=== PATIENT | male | born 1945 | race Caucasian/White ===

== ENCOUNTER → 2016-11-04 | Outpatient (CLI) | payer MEDICARE, BC ==
[2016-11-04 13:14] LABS: Blood Urea Nitrogen 17 mg/dL (9-20); Non-African American GFR(MDRD) >60 (>60 ml/min/1.73 sqM)
--- NOTE | 2016-11-04 13:49 | CT ---
EXAMINATION TYPE: CT brain wo/w con DATE OF EXAM: 11/04/2016 COMPARISON: NONE HISTORY: Migraine CT DLP: 1974.4mGycm CONTRAST: CT scan of the head is performed without and with IV Contrast, patient injected with 100 mL of Omnipa que 300. Unenhanced followed by contrast enhanced CT of the brain is submitted for evaluation. The ventricles are midline. There is no evidence for intracranial hemorrhage or extra-axial collection. No mass e ffects are identified. Visualized bony calvarium is intact. Contrast is administered and no enhanci ng lesions are detected. No pathologic enhancement is identified. If symptoms persist consider MRI. IMPRESSION: Normal CT brain.
== END | disposition home or self-care (01) ==
LOC: RADCTMAIN 12:22
PROVIDERS: ATTEND Family Medicine
DX: G43.909 Migraine, unspecified, not intractable, without status migrainosus (principal)
CPT/HCPCS: 82565; 84520; 70470; 36415; Q9967

== ENCOUNTER → 2016-12-15 | Outpatient (CLI) | payer MEDICARE, BC ==
--- NOTE | 2016-12-15 16:07 | US ---
EXAMINATION TYPE: US carotid duplex BILAT DATE OF EXAM: 12/15/2016 COMPARISON: NONE CLINICAL HISTORY: 71-year-old male G43.909 MIGRAINE. TECHNIQUE: Carotid duplex ultrasound examination. In direct Doppler criteria was utilized. FINDINGS: EXAM MEASUREMENTS: RIGHT: Peak Systolic Velocity (PSV) cm/sec ----- Right CCA: 121 ----- Right ICA: 130 ----- Right ECA: 218 ICA/CCA ratio: 1.1 RIGHT: End Diastole cm/sec ----- Right CCA: 36 ----- Right ICA: 34 ----- Right ECA: 40.8 LEFT: Peak Systolic Velocity (PSV) cm/sec ----- Left CCA: 124 ----- Left ICA: 113 ----- Left ECA: 108 ICA/CCA ratio: 0.9 LEFT: End Diastole cm/sec ----- Left CCA: 37.9 ----- Left ICA: 37.7 ----- Left ECA: 23.2 VERTEBRALS (direction of flow): Right Vertebral: Antegrade Left Vertebral: Antegrade No significant stenosis seen. Elevated right ECA, mildly elevated right ICA. IMPRESSION: Mildly elevated proximal right ICA peak systolic velocity. However, there is no significant atheroscl erotic narrowing seen. Findings probably reflect turbulent flow. Criteria for Assigning % of Stenosis / Diameter reduction (Estimation based on the indirect measurements of the internal carotid artery velocities (ICA PSV). 1. Normal (no stenosis)=ICA PSV < 125 cm/s: ratio < 2.0: ICA EDV<40 cm/s. 2. Less than 50% stenosis=ICA PSV < 125 cm/s: ratio < 2.0: ICA EDV<40 cm/s. 3. 50 to 69% stenosis=ICA PSV of 125 to 230 cm/s: ration 2.0 ? 4.0: ICA EDV 40-100 cm/s. 4. Greater than 70% stenosis to near occlusion= ICA PSV > 230 cm/s: ratio > 4.0: ICA EDV > 100 cm/s. 5. Near occlusion= ICA PSV velocities may be low or undetectable: variable ratio and ICA EDV. 6. Total occlusion=unable to detect flow.
== END | disposition home or self-care (01) ==
LOC: RADUSWWP 15:24
PROVIDERS: ATTEND Family Medicine
DX: R93.8 Abnormal findings on diagnostic imaging of other specified body structures (principal); G43.909 Migraine, unspecified, not intractable, without status migrainosus
CPT/HCPCS: 93880

== ENCOUNTER → 2016-12-17 | Outpatient (CLI) | payer MEDICARE, BC ==
--- NOTE | 2016-12-17 18:12 | MR ---
EXAMINATION TYPE: MR brain wo con DATE OF EXAM: 12/17/2016 COMPARISON: CT 11/04/2016 HISTORY: Headaches T1-weighted sagittal, T2, FLAIR, and diffusion axial, and T2 coronal coronal views of the brain are s ubmitted. There is no evidence of acute ischemia. The ventricles, basal cisterns, and sulci overlying the conv exities are consistent with the patient's age. There is no mass effect. Craniocervical junction maintained. Sella turcica has a normal appearance. No cerebellopontine angle mass. Changes of mild chronic sinusitis and left mastoiditis. Mild generalized degenerative change. There are a couple scattered areas of abnormal signal within th e white matter bilaterally which is nonspecific. IMPRESSION: 1. No acute intracranial process. 2. Minimal nonspecific white matter change could be seen with hypertension or migraine headaches. Rem ote microvascular ischemia also a consideration. Demyelinating process not entirely excluded but felt less likely. 3. Mild chronic sinusitis and left mastoiditis
== END | disposition home or self-care (01) ==
LOC: RADMRIMAIN 16:32
PROVIDERS: ATTEND Family Medicine
DX: I67.82 Cerebral ischemia (principal); R90.82 White matter disease, unspecified
CPT/HCPCS: 70551

== ENCOUNTER 2017-04-12 10:40 | Inpatient (IN) | payer MEDICARE, BC ==
--- NOTE | 2017-04-11 09:00 | HP ---
HISTORY AND PHYSICAL CHIEF COMPLAINT: Left knee pain. HISTORY OF PRESENT ILLNESS: The patient is a 72-year-old retired gentleman who presents with progressive left knee pain secondary to osteoarthrosis for the past several years. It has worsened recently. He is having a difficult time bearing weight. He has been limping. He has had previous injections along with multiple medications with only partial temporary relief. He has been using a cane or a walker. PAST MEDICAL HISTORY: Significant for asthma. PAST SURGICAL HISTORY: Significant for hernia repair, left knee arthroscopy, right shoulder surgery, previous cervical and lumbar spine surgery and tonsillectomy. CURRENT MEDICATIONS: 1. Omeprazole. 2. Naprosyn. 3. Percocet. 4. Soma. He notes allergies to PENICILLIN. In addition, develops a rash with SURGICAL TAPE. FAMILY HISTORY: Significant for heart disease and cancer. SOCIAL HISTORY: Negative for current tobacco or alcohol use. 16 POINT REVIEW OF SYSTEMS: Otherwise reviewed and is noncontributory. On examination, the patient is approximately 6 foot tall, 240 pounds of endomorphic habitus. HEENT exam is nonfocal. Neck is supple. He has painless passive motion of his left hip. Straight leg raise is negative. Active motion left knee -14 to 110 degrees of flexion. He is tender about the medial joint line. He has moderate effusion. Collaterals stable, Ruchi is negative, Adrienne's is equivocal. He has genu varum alignment. His distal neurovascular exam appears intact in the left lower extremity. X-rays to include weightbearing, notch, lateral and Merchant views of the left knee obtained in the office show severe medial compartment narrowing. IMPRESSION: 1. Left knee severe medial compartment osteoarthrosis. 2. Increased body mass index. 3. History of asthma. RECOMMENDATIONS: I talked to the patient at length regarding his treatment options. At this point, he is quite symptomatic. He opts to proceed with surgery. We will plan to proceed with left total knee arthroplasty. Risks and benefits were discussed at length in layman's terms. We will institute DVT prophylaxis postoperatively. MMODL / IJN: [id number] /
[~2017-04-12 10:40] MED LIST: ACETAMINOPHEN TAB 500 MG TAB PO ONE; HYDROmorphone 0.5 MG/0.5 ML SYRINGE IVP PRN; LIDOCAINE 1% 20 ML VIAL (10MG/ML) FOR IV START INTRADERMA PRN; MELOXICAM 7.5 MG TAB PO ONE; ONDANSETRON 4 MG/2 ML VIAL IVP ONE; TRANEXAMIC ACID 1,000 MG in SODIUM CHLORIDE 0.9% 100 ML IVPB ONE; ceFAZolin IN SWFI 2 GM/20 ML SYRINGE IVP ONE
[2017-04-12] MEDS: LACTATED RINGERS 1,000 ML IV SCH ×2 (13:10→21:11)
[2017-04-12] MEDS ORDERED: MIDAZOLAM 2 MG/2 ML VIAL IV ONE (13:30)
[2017-04-12] MEDS ORDERED: ROPIVACAINE 1,100 MG, SODIUM CHLORIDE 0.9% 330 ML MISCELLANE PRN ×2 (13:55)
--- NOTE | 2017-04-12 13:57 | P.ONQ ---
Anesthesiology Proc Note - PNB - Peripheral Nerve Block Performed Left Adductor Canal Indication: Acute Post-Operative Pain, Requested by physician (Dr Jacobs) Sedation Type: Sedate with meaningful contact maintained Preparation: Sterile Dressing Position: Supine Catheter: Indwelling Needle Types: Other (see comment) (Chanda) Needle Size: 100mm (4") Needle Gauge: 20 Technique: Ultrasound Injectate: 0.5% Ropivacaine (see comment for volume) Blood Aspirated: No Pain Paresthesia on Injection Noted: No Resistance on Injection: Normal Events: Uneventful and Well Tolerated
[2017-04-12 14:15] LABS: Prothrombin Time 10.3 sec (9.0-12.0)
[2017-04-12] MEDS ORDERED: ROPIVACAINE 246.25 MG, EPINEPHrine 0.5 MG, KETOROLAC 30 MG, cloNIDine HCL/PF 80 MCG, WA... MISCELLANE ONE ×5 (14:25)
[2017-04-12] MEDS ORDERED: SODIUM CHLORIDE 0.9% 100 ML BAG ONE (14:28)
[2017-04-12] MEDS ORDERED: TRANEXAMIC ACID 1,000 MG/10 ML VIAL ONE (14:28)
[2017-04-12] MEDS ORDERED: KETAMINE 10 MG/ML 20 ML VIAL ONE (14:28)
[2017-04-12] MEDS ORDERED: fentaNYL (PF) 50 MCG/ML 2 ML AMP ONE (14:28)
[2017-04-12] MEDS ORDERED: SODIUM CHLORIDE 0.9% 50 ML with ceFAZolin 2 GM IV ONE ×2 (14:28)
[2017-04-12] MEDS ORDERED: LIDOCAINE 1% INJ 10MG/ML (20 ML MDV) ONE (14:28)
[2017-04-12] MEDS ORDERED: PROPOFOL 10 MG/ML 20 ML VIAL IV ONE (14:28)
[2017-04-12] MEDS ORDERED: PHENYLEPHRINE-0.9% NACL SYG 1 MG/10 ML SYRINGE ONE (14:28)
[2017-04-12] MEDS ORDERED: MIDAZOLAM 2 MG/2 ML VIAL ONE (14:28)
[2017-04-12] MEDS ORDERED: CLINDAMYCIN 1,800 MG in SODIUM CHLORIDE 0.9% IRRIGATIO 3,000 ML IRRIGATION ONE (15:01)
[2017-04-12] MEDS ORDERED: MAGNESIUM HYDROXIDE 2,400 MG/10 ML CUP PO PRN (16:12)
[2017-04-12] MEDS ORDERED: ONDANSETRON 4 MG/2 ML VIAL IVP PRN (16:12)
[2017-04-12] MEDS ORDERED: NALOXONE 0.4 MG/ML 1 ML VIAL IV PRN (16:12)
[2017-04-12] MEDS ORDERED: ACETAMINOPHEN TAB 325 MG TAB PO PRN (16:12)
[2017-04-12] MEDS ORDERED: hydrOXYzine PAMOATE 25 MG CAP PO PRN (16:12)
[2017-04-12] MEDS ORDERED: HYDROmorphone 1 MG/ML 1 ML SYRINGE IVP PRN ×2 (16:12)
--- NOTE | 2017-04-12 16:46 | P.OP ---
Date of Procedure: 04/12/17 Preoperative Diagnosis: Left knee severe tricompartmental osteoarthrosis-primary Postoperative Diagnosis: Same Procedure(s) Performed: Left total knee [id number]-[id number] stabilized Implants: Depuy Attune size 7 cemented femoral component, size 7 cemented tibial component , 9 mm articular surface, 38 mm cemented patellar component. This is a posterior stabilized implant. Anesthesia: regional, local, spinal Surgeon: Keith Jacobs Metallurgical Analyst #1: Todd Chu Estimated Blood Loss (ml): 50 Pathology: other (Bone fragments) Condition: stable Disposition: PACU Indications for Procedure: The patient's a 72-year-old gentleman who presents with progressive left knee pain secondary osteoarthrosis despite extensive conservative measures. A discussion of the risks and benefits of operative intervention versus continued conservative measures was made with the patient. He opted to proceed with surgery. Specific risks of surgery to include infection, neurovascular injury, development of blood clots, possible component loosening, possible component failure and need for subsequent procedures was discussed. Informed consent was obtained. Operative Findings: As below Description of Procedure: The patient was brought to the operating room, and after induction of spinal anesthesia the left lower extremity was prepped and draped in normal fashion. The tourniquet was inflated to 270 mmHg. A longitudinal incision extending 3 finger breaths above the superior pole of patella extending to the medial aspect the tibial tubercle was then made. The skin and subcutaneous tissues were divided sharply. Electrocautery was used for hemostasis. A medial parapatellar arthrotomy was then performed. The medial soft tissues to include the superficial and deep portions the medial collateral ligament as well as the medial hamstring tendons were elevated subperiosteally. The proximal medial tibial osteophytes were also carefully removed. The patella was everted. A portion of the retropatellar fat pad was excised sharply. The knee was then flexed. The anterior cruciate ligament was excised. A starting hole was made in the distal femur 1 cm anterior to the posterior cruciate ligament origin. An intramedullary femoral guide was then gently inserted planning on 5 valgus distal cut with 9 mm distal resection. The cutting block was pinned in place. The distal cut was then made. The posterior referencing sizing guide was utilized. I felt size 7 was most appropriate. 3 of external rotation was built into the system and verified off the trans-epicondylar axis and the posterior condyles. The cutting block was pinned in place. The anterior, posterior, and chamfer cuts were then made. The bone fragments were then removed. The box guide was then utilized. A reciprocating saw was used to cut the bone fragment out of the box. This was then removed. The trial femoral component was placed and had good medial to lateral along with anterior to posterior fit. The peg holes were drilled distally. Attention was then paid towards preparing the proximal tibia. An extra medullary guide was utilized in line with the tibial shaft and second metatarsal distally. I planned a 3 posterior slope. I planned on 2 mm resection from the medial compartment. The cutting block was pinned in place. Proximal tibial cut was made in the bone removed one fragment. Remnants of the medial and lateral menisci were excised at the capsular junction with electrocautery. I felt this tight in both flexion and extension therefore an additional 2 mm was resected utilizing the cutting block. The tibia sized most appropriate size 7. The trial tibial and femoral components were placed along with a 9 mm articular surface. I was able to obtain full flexion and extension with good stability with varus and valgus stress. After several flexion and extension cycles, the tibial rotation was marked in line with the medial one third of the tibial tubercle. Attention was then paid towards preparing the patella. A patella reamer was utilized taking this down to 14 mm of bone stock. A good flush cut was made. The patella sized most appropriately 38 mm per the peg holes were drilled. The trial components placed. The knee was taken through range of motion. I had good patellofemoral tracking with no hands technique. The trial components were then removed. The posterior osteophytes were carefully removed with a curved osteotome. The tibia was prepared in the appropriate rotation with appropriate drill and keel punch. The posterior soft tissues were injected with ropivacaine. The flexion and extension gaps were checked and felt to be symmetric. The bony surfaces were prepared with pulsatile lavage and dried. Additional drill holes were made in the proximal medial tibia to facilitate cement interdigitation. The tibial component was then cemented in placed and was fully seated. Excess cement was removed. The femoral component was cemented in placed and was fully seated. Excess cement was removed. The trial 9 mm articular surface was placed and the knee was put in full extension. The patella component cemented place and excess cement was removed. After the cement had sufficiently hardened, the knee was again taken through range of motion. Again I was able to obtain full flexion and extension with good stability with varus valgus stress. The trial articular surface was removed and the final 9 mm to close surface was placed and was fully seated. Care was taken to avoid any soft tissue interposition. Pulsatile lavage was again utilized. A medial parapatellar arthrotomy was closed with #2 Ethibond suture. The tourniquet was deflated the proximal a 70 minutes total tourniquet time. Final hemostasis was obtained with electrocautery. The subcutaneous tissues were reapproximated with interrupted 2-0 Vicryl sutures. The skin was reapproximated with 3-0 subcutaneous running suture. Skin glue along with several Steri-Strips were placed. A sterile dressing was applied. The patient was awoken from sedation and transferred to recovery room in good condition. Blood loss was estimated 50 mL. No complications were incurred. Sponge and needle counts were correct at the end the case.
--- NOTE | 2017-04-12 17:13 | XR ---
EXAMINATION TYPE: XR knee limited LT DATE OF EXAM: 04/12/2017 CLINICAL HISTORY: Postoperative evaluation Two views of the left knee are submitted. Identified are changes of total knee arthroplasty with fem oral and tibial components appearing well seated. Postsurgical soft tissue changes are noted. Align ment is anatomic.
[2017-04-12] MEDS: SENNOSIDES-DOCUSATE SODIUM 1 EACH TAB PO SCH (21:11)
[2017-04-12] MEDS: ceFAZolin IN SWFI 2 GM/20 ML SYRINGE IVP SCH (23:37)
[2017-04-13] MEDS: oxyCODONE-APAP 10-325MG 1 EACH TAB PO PRN ×3 (01:53→16:02)
[2017-04-13 02:40] VITALS: RESP 16
[2017-04-13] MEDS: traMADol 50 MG TAB PO PRN ×3 (07:09→21:36)
[2017-04-13 07:35] LABS: Basophils % (A) 0 %; CH 29.3; CHCM 31.5; Eosinophils # (A) 0.2 k/uL (0-0.7); Eosinophils % (A) 2 %; HDW 2.33; HGB 11.1 gm/dL (13.0-17.5); Luc % (Auto) 1; Lymphocytes # (A) 1.4 k/uL (1.0-4.8); Lymphocytes % (A) 15 %; MCH 28.8 pg (25.0-35.0); MCHC 30.8 g/dL (31.0-37.0); MCV 93.6 fL (80.0-100.0); Monocytes # (A) 0.8 k/uL (0-1.0); Monocytes % (A) 8 %; Neutrophils # (A) 7.2 k/uL (1.3-7.7); Neutrophils % (A) 74 %; RBC 3.84 m/uL (4.30-5.90); RDW 14.5 % (11.5-15.5); WBC 9.8 k/uL (3.8-10.6); WBC (Perox) 9.95
--- NOTE | 2017-04-13 07:52 | P.PN ---
Progress Note - Text The patient is status post left adductor canal catheter placement. The catheter was placed for postoperative pain control, status post total left arthroplasty. Ropivacaine 0.2% is infusing at 10 mLs per hour. The patient has no complaints of left lower extremity numbness or weakness. Patient's VAS score is 2-3 -10. Assessment: Patient's adductor canal catheter is in place and working appropriately. Plan: continue infusion and adjust it as needed.
[2017-04-13] MEDS: ceFAZolin IN SWFI 2 GM/20 ML SYRINGE IVP SCH (08:26)
[2017-04-13] MEDS: RIVAROXABAN 10 MG TAB PO SCH (08:33)
--- NOTE | 2017-04-13 12:14 | P.PN ---
Subjective Progress Note Date: 04/13/17 Principal diagnosis: Status post left total knee arthroplasty Patient seen today resting in his hospital bed, he appears comfortable. His pain is controlled currently. He did have a episode of hypotension and diaphoresis when he attempted to walk this morning. They're attempting to get him out of bed after lunch. He denies any headaches, lightheadedness, chest pain or shortness of breath. Objective - Vital Signs Vital signs: Vital Signs Temp 98.7 F 04/13/17 08:24 Pulse 73 04/13/17 08:24 Resp 16 04/13/17 07:08 BP 122/62 04/13/17 10:11 Pulse Ox 93 L 04/13/17 08:24 Intake & Output 04/12/17 04/13/17 04/13/17 18:59 06:59 18:59 Intake Total 821 Output Total 275 765 300 Balance 546 -765 -300 Intake: IV 821 Output: Drainage 165 Left Knee 165 Urine 225 600 300 Uretheral (Pratt) 300 Estimated Blood Loss 50 Other: Voiding Method Indwelling Catheter Indwelling Catheter Indwelling Catheter - Exam Left lower extremity: Incision is clean, dry, and intact. The prineo tape is in good condition. There is minimal soft tissue swelling and ecchymosis surrounding the medial and lateral aspects of the incision. Calf is soft, no tenderness with palpation. Plantar flexion, dorsiflexion, EHL, FHL are intact. Sensory exam to light touch throughout the extremity is intact, dorsal pedis pulses 2+. - Labs CBC & Chem 7: 04/13/17 07:08 Labs: Abnormal Lab Results - Last 24 Hours (Table) 04/13/17 Range/Units 07:08 RBC 3.84 L (4.30-5.90) m/uL Hgb 11.1 L (13.0-17.5) gm/dL Hct 36.0 L (39.0-53.0) % MCHC 30.8 L (31.0-37.0) g/dL Assessment and Plan Plan: Assessment: 1. Postop day #1 status post left total knee arthroplasty Plan: 1. Pain control, continue supportive oral medications 2. Continue work with physical therapy and use of CPM 3. GI and DVT prophylaxis, continue use of Xarelto at this time 4. Encourage incentive spirometer 5. Daily dressing changes/ice and elevate 6. Medical recommendations 7. Discharge planning: Plan for discharged home tomorrow Time with Patient: Less than 30
[2017-04-13] MEDS: LACTATED RINGERS 1,000 ML IV SCH (12:18)
[2017-04-13] MEDS ORDERED: CARISOPRODOL 350 MG TAB PO PRN (13:05)
[2017-04-13] MEDS ORDERED: SODIUM CHLORIDE 0.9% 1,000 ML IV ONE (14:10)
[2017-04-13 14:54] LABS: Basophils % (A) 0 %; CH 29.2; Eosinophils # (A) 0.2 k/uL (0-0.7); Eosinophils % (A) 2 %; HCT 35.1 % (39.0-53.0); HDW 2.33; HGB 10.7 gm/dL (13.0-17.5); Hypochromasia Slight; Luc % (Auto) 1; Lymphocytes % (A) 13 %; MCH 28.8 pg (25.0-35.0); MCHC 30.4 g/dL (31.0-37.0); MCV 94.8 fL (80.0-100.0); Mean Platelet Volume 7.2; Monocytes # (A) 0.7 k/uL (0-1.0); Monocytes % (A) 8 %; Neutrophils # (A) 6.2 k/uL (1.3-7.7); Neutrophils % (A) 76 %; RDW 14.4 % (11.5-15.5); WBC 8.2 k/uL (3.8-10.6); WBC (Perox) 8.56
--- NOTE | 2017-04-13 15:19 | P.CONS ---
History of Present Illness - Reason for Consult Consult date: 04/13/17 Medical management - History of Present Illness This is a 72-year-old male patient of Dr. Aguillon with a past medical history of mild intermittent asthma, hyperlipidemia, kidney stones, osteoarthritis. Patient has been admitted under the care of Dr. Jacobs and is status post left total knee arthroplasty. Patient has had 2 episodes of getting up today and was lightheaded and developed sweats. Orthostatic vital signs were positive. Patient will be given IV fluid bolus. Patient's pain is currently controlled. He is anticipating discharge home tomorrow. Review of Systems All systems: negative Constitutional: Reports sweats, Denies chills, Denies fever Eyes: denies blurred vision, denies pain Ears, nose, mouth and throat: Denies headache, Denies sore throat Cardiovascular: Reports lightheadedness, Denies chest pain, Denies shortness of breath, Denies syncope Respiratory: Denies cough Gastrointestinal: Denies abdominal pain, Denies diarrhea, Denies nausea, Denies vomiting Musculoskeletal: Denies myalgias Integumentary: Denies pruritus, Denies rash Neurological: Denies numbness, Denies weakness Psychiatric: Denies anxiety, Denies depression Endocrine: Denies fatigue, Denies weight change Past Medical History Past Medical History: Asthma, Hyperlipidemia Additional Past Medical History / Comment(s): kidney stones. 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 History of Any Multi-Drug Resistant Organisms: None Reported Past Surgical History: Back Surgery, Hernia Repair, Orthopedic Surgery, Tonsillectomy Additional Past Surgical History / Comment(s): Neck JunND BACK APR 2013- laminectomy done by Dr. 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 He was also in the [employer] and served in [place]. 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 He lives at home with his . Past Drug Use History: None Reported - Past Family History Father Family Medical History: No Reported History Additional Family Medical History / Comment(s): Father with history of rheumatoid arthritis. Mother Family Medical History: No Reported History Additional Family Medical History / Comment(s): Mother at age 91 from a myocardial infarction. She had history of osteoarthritis and a blood disorder. Sister(s) Family Medical History: Cancer Additional Family Medical History / Comment(s): Patient has 2 sisters. One at age 49 from breast cancer and one in their 30s from myocardial infarction with history of Down syndrome. Brother(s) Additional Family Medical History / Comment(s): Patient has 2 brothers with osteoarthritis. Medications and Allergies Home Medications Medication Instructions Recorded Confirmed Type B Complex-Vit C-Vit E-Zinc [Z-Bec] 1 tab PO DAILY 10/13/13 04/12/17 History Colesevelam [Welchol] 3,750 mg PO HS 10/13/13 04/12/17 History Fluticasone/Salmeterol [Advair 1 puff INHALATION RT-Q12H 10/13/13 04/12/17 History 500-50 Diskus] Naproxen Sodium [Aleve] 440 mg PO HS PRN 04/16/14 04/12/17 History Omeprazole [Omeprazole] 20 mg PO BID 04/16/14 04/12/17 History Acetaminophen Tab [Tylenol Tab] 650 mg PO Q6H PRN 03/24/17 04/12/17 History Carisoprodol [Soma] 350 mg PO TID 03/24/17 04/12/17 History Cetirizine HCl 10 mg PO HS 03/24/17 04/12/17 History Glucosamine/Chondr Ambrosio A Sod [Osteo 2 tab PO DAILY 03/24/17 04/12/17 History Bi-Flex Caplet] oxyCODONE-APAP 10-325MG [Percocet 1 tab PO TID 03/24/17 04/12/17 History 10-325 mg] Rivaroxaban [Xarelto] 10 mg PO DAILY #12 tab 04/12/17 Rx Allergies Allergy/AdvReac Type Severity Reaction Status Date / Time latex Allergy Itching Verified 04/12/17 16:22 Penicillins Allergy Rash/Hives Verified 04/12/17 16:22 TAPE Allergy SKIN Uncoded 04/12/17 12:52 REDDENED AND BLISTERS STATES "PAPER TAPE IS OK" Physical Exam Vitals: Vital Signs Temp Pulse Resp BP BP BP Pulse Ox 04/13/17 14:27 98/61 76/50 131/73 04/13/17 10:11 122/62 04/13/17 09:30 113/53 04/13/17 09:25 86/53 04/13/17 08:24 98.7 F 73 143/76 93 L 04/13/17 07:08 98.7 F 76 16 138/68 93 L 04/13/17 01:43 98.8 F 72 16 115/54 92 L 04/12/17 19:00 97.7 F 78 17 116/58 94 L 04/12/17 17:30 98.1 F 71 16 135/88 97 04/12/17 17:15 74 16 140/65 95 04/12/17 17:00 71 16 138/74 96 04/12/17 16:45 71 16 127/70 94 L 04/12/17 16:40 97.1 F L 73 16 114/58 96 Intake and Output 04/12/17 04/13/17 04/13/17 22:59 06:59 14:59 Intake Total 1 Output Total 350 690 300 Balance -349 -690 -300 Intake: IV 1 Output: Drainage 75 90 Left Knee 75 90 Urine 225 600 300 Uretheral (Pratt) 300 Estimated Blood Loss 50 Other: Voiding Method Indwelling Catheter Indwelling Catheter # Voids 1 Gen: This is a 72-year-old male. He appears to be in no acute distress. HEENT: Head is atraumatic, normocephalic. Pupils equal, round. Sclerae is anicteric. NECK: Supple. No JVD. No lymphadenopathy. No thyromegaly. LUNGS: Clear to auscultation. No wheezes or rhonchi. No intercostal retractions. HEART: Regular rate and rhythm. No murmur. ABDOMEN: Soft. Bowel sounds are present. No masses. No tenderness. EXTREMITIES: No pedal edema. No calf tenderness. Dressing in place to the left knee. Dorsalis pedis is palpable bilaterally. NEUROLOGICAL: Patient is awake, alert and oriented x3. Cranial nerves 2 through 12 are grossly intact. Results CBC & Chem 7: 04/13/17 14:37 Labs: Abnormal Lab Results - Last 24 Hours (Table) 04/13/17 Range/Units 07:08 RBC 3.84 L (4.30-5.90) m/uL Hgb 11.1 L (13.0-17.5) gm/dL Hct 36.0 L (39.0-53.0) % MCHC 30.8 L (31.0-37.0) g/dL Assessment and Plan Assessment: 1. Left total knee arthroplasty for osteoarthritis. Continue current pain management. PT and OT per Dr. Jacobs. CPM at bedside. Patient has been started on Xarelto for DVT prophylaxis. Incentive spirometry to reduce incidence of atelectasis and hospital-acquired pneumonia. 2. Near syncope, orthostatic hypotension. Patient will be given 1 L of IV fluid bolus followed by 75 mL per hour. He is not currently on any medications for hypertension. 3. Hyperlipidemia. Patient is on WelChol 3750 at bedtime. 4. Chronic neck and back pain status post surgical intervention. Continue current pain regime. 5. Asthma, mild intermittent, continue Advair every 12 hours. Discharge plan: Home with [facility] Impression and plan of care have been directed as dictated by the signing physician. Rosetta Agrawal nurse practitioner acting as scribe for signing physician.
[2017-04-13] MEDS: SODIUM CHLORIDE 0.9% 1,000 ML IV SCH (16:04)
[2017-04-13] MEDS: SENNOSIDES-DOCUSATE SODIUM 1 EACH TAB PO SCH (21:36)
[2017-04-14] MEDS: oxyCODONE-APAP 10-325MG 1 EACH TAB PO PRN ×3 (01:01→15:11)
[2017-04-14] MEDS: SODIUM CHLORIDE 0.9% 1,000 ML IV SCH (06:23)
[2017-04-14] MEDS: RIVAROXABAN 10 MG TAB PO SCH (08:37)
--- NOTE | 2017-04-14 11:50 | P.PN ---
Subjective Progress Note Date: 04/14/17 Principal diagnosis: Status post left total knee arthroplasty Patient seen today resting in his hospital bed, he appears comfortable. His pain is controlled currently. He denies any headaches, lightheadedness, chest pain or shortness of breath. Objective - Vital Signs Vital signs: Vital Signs Temp 98.4 F 04/14/17 07:00 Pulse 94 04/14/17 07:00 Resp 16 04/14/17 00:17 BP 109/71 04/14/17 07:00 Pulse Ox 96 04/14/17 07:00 Intake & Output 04/13/17 04/14/17 04/14/17 18:59 06:59 18:59 Intake Total 1200 Output Total 450 Balance -450 1200 Intake: Intake, IV Titration 1200 Amount Sodium Chloride 0.9% 1, 1200 000 ml @ 75 mls/hr IV . [id number] [facility] Rx#:[id number] Output: Urine 450 Uretheral (Pratt) 300 Other: Voiding Method Indwelling Catheter # Voids 1 3 - Exam Left lower extremity: Incision is clean, dry, and intact. There is minimal soft tissue swelling and ecchymosis surrounding the medial and lateral aspects of the incision. Calf is soft, no tenderness with palpation. Plantar flexion, dorsiflexion, EHL, FHL are intact. Sensory exam to light touch throughout the extremity is intact, dorsal pedis pulses 2+. - Labs CBC & Chem 7: 04/13/17 14:37 Labs: Abnormal Lab Results - Last 24 Hours (Table) 04/13/17 Range/Units 14:37 RBC 3.70 L (4.30-5.90) m/uL Hgb 10.7 L (13.0-17.5) gm/dL Hct 35.1 L (39.0-53.0) % MCHC 30.4 L (31.0-37.0) g/dL Assessment and Plan Plan: Assessment: 1. Postop day #2 status post left total knee arthroplasty Plan: 1. Pain control, continue supportive oral medications 2. Continue work with physical therapy and use of CPM 3. GI and DVT prophylaxis, continue use of Xarelto at this time 4. Encourage incentive spirometer 5. Daily dressing changes/ice and elevate 6. Medical recommendations 7. Discharge planning: We'll discharge patient home today Time with Patient: Less than 30
--- NOTE | 2017-04-14 11:56 | P.DS ---
Providers Date of admission: 04/12/17 12:24 Expected date of discharge: 04/14/17 Attending physician: Keith Jacobs Consults: 04/12/17 16:12 Consult Physician Routine Consulting Provider: Orlando Marcano Consult Reason/Comments: medical management Do you want consulting provider notified?: Yes Primary care physician: [facility] Course: Date of admission: 04/12/2017 Date of discharge: 04/14/2017 Admission diagnosis: Status post left total knee arthroplasty Discharge diagnosis: Same Attending physician: Dr. Jacobs Surgical procedures: Left total knee arthroplasty Brief history: Patient is a 72-year-old male with a history of progressive primary left knee osteoarthritis. At this point patient has failed conservative treatment measures and has opted to proceed with a elective left total knee arthroplasty. Hospital course: Details of patient's surgery can be found in operative report. Patient tolerated the procedure well and was subsequently transported to orthopedic floor. Patient's orthopeidc and medical care was provided daily. Patient had daily laboratory tests performed for evaluation of overall blood counts. Patient had daily physical therapy to include strengthening range of motion as well as education with walker ambulation. Patient had daily CPM usage as part of their physical therapy program. Patient was treated with Xarelto for their postoperative DVT prophylaxis during their inpatient stay. Patient was noted to have a relatively uneventful postoperative course. Patient reported satisfactory pain control with oral pain medications by postoperative day 0. Patient showed satisfactory progress with physical therapy. Patient moved steadily through the program and had no difficulty meeting the goals by postoperative day 2. Given patient's otherwise satisfactory course and having met physical therapy goals, plan is to discharge patient home on postoperative day 2. Discharge condition/disposition: Patient will be discharged home in stable condition. Discharge medications: Instructions are given on resumption of patient's normal daily medications per primary care recommendation, in addition patient will be prescribed oxycodone 10 mg/325 mg, tramadol 50 mg, Colace 100 mg, Xarelto 10 mg. Discharge instructions: 1. Wound care and infection precautions, keep incision dry and covered while showering, no lotions, creams, moisturizers. No soaking, tubs, pools, hottubs. Do not scrub over the incision. 2. Weight-bear as tolerated with walker / cane until follow-up. 3. Ice and elevate when necessary. Do not exceed 20 minutes per hour with ice pack. 4. Utilize compression sleeve until seen at first follow up appointment. 5. Visiting nursing care. 6. Home physical therapy [including home CPM]. 7. Pain meds and anticoagulants per prescription. 8. Pain medication has potential to cause constipation. Increase oral fluid and fiber intake. Contact primary care provider if you have not had a bowel movement within 48 hours after discharge 9. No anti-inflammatory medication until discussed at first post operative visit, this including Motrin, Aleve, Mobic, Diclofenac. 10. Follow up in office at 2 weeks postop with Daljit Chu PA-C 11. Follow up with your primary care doctor 7-10 days after discharge. 12. Contact [facility] with any questions, . Procedures: Left total knee arthroplasty Patient Condition at Discharge: Good Plan - Discharge Summary Discharge Rx Participant: Yes New Discharge Prescriptions: New Rivaroxaban [Xarelto] 10 mg PO DAILY #12 tab traMADol HCl [Ultram] 50 mg PO Q6H PRN #40 tab PRN Reason: Pain Docusate [Colace] 100 mg PO DAILY #30 capsule oxyCODONE-APAP 10-325MG [Percocet 10-325 mg] 1 tab PO Q6HR PRN #40 tab PRN Reason: Pain No Action B Complex-Vit C-Vit E-Zinc [Z-Bec] 1 tab PO DAILY Fluticasone/Salmeterol [Advair 500-50 Diskus] 1 puff INHALATION RT-Q12H Colesevelam [Welchol] 3,750 mg PO HS Omeprazole [Omeprazole] 20 mg PO BID Naproxen Sodium [Aleve] 440 mg PO HS PRN PRN Reason: Pain Carisoprodol [Soma] 350 mg PO TID Glucosamine/Chondr Ambrosio A Sod [Osteo Bi-Flex Caplet] 2 tab PO DAILY Acetaminophen Tab [Tylenol Tab] 650 mg PO Q6H PRN PRN Reason: Pain Cetirizine HCl 10 mg PO HS Discharge Medication List B Complex-Vit C-Vit E-Zinc [Z-Bec] 1 tab PO DAILY 10/13/13 [History] Colesevelam [Welchol] 3,750 mg PO HS 10/13/13 [History] Fluticasone/Salmeterol [Advair 500-50 Diskus] 1 puff INHALATION RT-Q12H 05/10/ 14 [History] Naproxen Sodium [Aleve] 440 mg PO HS PRN 04/16/14 [History] Omeprazole [Omeprazole] 20 mg PO BID 04/16/14 [History] Acetaminophen Tab [Tylenol Tab] 650 mg PO Q6H PRN 03/24/17 [History] Carisoprodol [Soma] 350 mg PO TID 03/24/17 [History] Cetirizine HCl 10 mg PO HS 03/24/17 [History] Glucosamine/Chondr Ambrosio A Sod [Osteo Bi-Flex Caplet] 2 tab PO DAILY 03/24/17 [ History] Rivaroxaban [Xarelto] 10 mg PO DAILY #12 tab 04/12/17 [Rx] Docusate [Colace] 100 mg PO DAILY #30 capsule 04/14/17 [Rx] oxyCODONE-APAP 10-325MG [Percocet 10-325 mg] 1 tab PO Q6HR PRN #40 tab 04/14/17 [Rx] traMADol HCl [Ultram] 50 mg PO Q6H PRN #40 tab 04/14/17 [Rx] Follow up Appointment(s)/Referral(s): [facility], [NON-STAFF] - Todd Chu, PAC [PHYSICIAN LAYDOWN MACHINE OPERATOR] - 04/29/17 1:30 pm Activity/Diet/Wound Care/Special Instructions: Orthopedic Discharge Instructions: 1. Wound care and infection precautions, keep incision dry and covered while showering, no lotions, creams, moisturizers. No soaking, pools, hot tubs. Do not scrub over incision. 2. Weight-bear as tolerated with walker / cane until follow-up. 3. Ice and elevate when necessary. Do not exceed 20 minutes per hour with ice pack. 4. Utilize compression sleeve until seen at first follow up appointment. 5. Visiting nursing care. 6. Home physical therapy including home CPM. 7. Pain meds and anticoagulants per prescription. 8. Pain medication has potential to cause constipation. Increase oral fluid and fiber intake. Contact primary care provider if you have not had a bowel movement within 48 hours after discharge. 9. No anti-inflammatory medication until discussed at first post operative visit, this including Motrin, Aleve, Mobic, Diclofenac. 10. Follow up in office at 2 weeks postop with Daljit Chu PA-C 11. Follow up with your primary care doctor 7-10 days after discharge. 12. Contact [facility] with any questions, . Discharge Disposition: HOME WITH HOME HEALTH SERVICES
--- NOTE | 2017-04-14 13:20 | P.PN ---
Progress Note - Text 0634 Anesthesia POD 2. Patient is status post left TKR under spinal anesthesia with a left adductor canal catheter placed for postoperative pain relief. With ropivacaine 0.2% running at 10 cc's per hour, the patient's VAS is (0, 7). Catheter site is clean dry and intact.
--- NOTE | 2017-04-14 13:40 | P.PN ---
Subjective Progress Note Date: 04/14/17 This is a 72-year-old male patient of Dr. Aguillon with a past medical history of mild intermittent asthma, hyperlipidemia, kidney stones, osteoarthritis. Patient has been admitted under the care of Dr. Jacobs and is status post left total knee arthroplasty. Patient has had 2 episodes of getting up today and was lightheaded and developed sweats. Orthostatic vital signs were positive. Patient will be given IV fluid bolus. Patient's pain is currently controlled. He is anticipating discharge home tomorrow. 04/14: Patient is anticipating discharge home today. He denies any further episodes of lightheadedness. Orthostatic vital signs are much improved. IV fluids can be discontinued. Objective - Vital Signs Vital signs: Vital Signs Temp 98.4 F 04/14/17 07:00 Pulse 94 04/14/17 07:00 Resp 16 04/14/17 00:17 BP 109/71 04/14/17 07:00 Pulse Ox 96 04/14/17 07:00 Intake & Output 04/13/17 04/14/17 04/14/17 18:59 06:59 18:59 Intake Total 1200 Output Total 450 Balance -450 1200 Intake: Intake, IV Titration 1200 Amount Sodium Chloride 0.9% 1, 1200 000 ml @ 75 mls/hr IV . [id number] [facility] Rx#:[id number] Output: Urine 450 Uretheral (Pratt) 300 Other: Voiding Method Indwelling Catheter # Voids 1 3 - Exam Gen: This is a 72-year-old male. He appears to be in no acute distress. HEENT: Head is atraumatic, normocephalic. Pupils equal, round. Sclerae is anicteric. NECK: Supple. No JVD. No lymphadenopathy. No thyromegaly. LUNGS: Clear to auscultation. No wheezes or rhonchi. No intercostal retractions. HEART: Regular rate and rhythm. No murmur. ABDOMEN: Soft. Bowel sounds are present. No masses. No tenderness. EXTREMITIES: No pedal edema. No calf tenderness. Dressing in place to the left knee. Dorsalis pedis is palpable bilaterally. NEUROLOGICAL: Patient is awake, alert and oriented x3. Cranial nerves 2 through 12 are grossly intact. - Labs CBC & Chem 7: 04/13/17 14:37 Labs: Abnormal Lab Results - Last 24 Hours (Table) 04/13/17 Range/Units 14:37 RBC 3.70 L (4.30-5.90) m/uL Hgb 10.7 L (13.0-17.5) gm/dL Hct 35.1 L (39.0-53.0) % MCHC 30.4 L (31.0-37.0) g/dL Assessment and Plan Assessment: 1. Left total knee arthroplasty for osteoarthritis. Continue current pain management. PT and OT per Dr. Jacobs. CPM at bedside. Patient has been started on Xarelto for DVT prophylaxis. Incentive spirometry to reduce incidence of atelectasis and hospital-acquired pneumonia. 2. Near syncope, orthostatic hypotension. Patient will be given 1 L of IV fluid bolus followed by 75 mL per hour. He is not currently on any medications for hypertension. 3. Hyperlipidemia. Patient is on WelChol 3750 at bedtime. 4. Chronic neck and back pain status post surgical intervention. Continue current pain regime. 5. Asthma, mild intermittent, continue Advair every 12 hours. Discharge plan: Home with [facility] Impression and plan of care have been directed as dictated by the signing physician. Rosetta Agrawal nurse practitioner acting as scribe for signing physician.
[2017-04-14 15:18] VITALS: BP 146/74; PULSE 96; TEMP 97.4
== END 2017-04-14 15:45 | disposition home health service (06) | DRG 470 ==
LOC: 2ORMAIN 12:24 → 3SUR 16:43
PROVIDERS: ADMIT Orthopaedic Surgery; ATTEND Orthopaedic Surgery
PROC: 0SRD0J9 Replacement of Left Knee Joint with Synthetic Substitute, Cemented, Open Approach (ICD-10-PCS; principal; 2017-04-12 14:00)
DX: M17.12 Unilateral primary osteoarthritis, left knee (principal); E78.5 Hyperlipidemia, unspecified; G89.29 Other chronic pain; I95.1 Orthostatic hypotension; J45.20 Mild intermittent asthma, uncomplicated; M21.162 Varus deformity, not elsewhere classified, left knee; M54.9 Dorsalgia, unspecified; M54.2 Cervicalgia; Z79.01 Long term (current) use of anticoagulants; Z79.899 Other long term (current) drug therapy; Z80.3 Family history of malignant neoplasm of breast; Z82.49 Family history of ischemic heart disease and other diseases of the circulatory system; Z82.79 Family history of other congenital malformations, deformations and chromosomal abnormalities; Z87.442 Personal history of urinary calculi; Z88.0 Allergy status to penicillin; Z91.040 Latex allergy status
CPT/HCPCS: 83605; 85025; 85610; 88300

== ENCOUNTER → 2022-09-10 | Outpatient (CLI) | payer MEDICARE, BC ==
--- NOTE | 2022-09-10 11:09 | XR ---
EXAMINATION TYPE: XR chest 2V DATE OF EXAM: 09/10/2022 10:46 AM COMPARISON: Chest radiographs from 08/16/2022 TECHNIQUE: XR chest 2V Frontal and lateral views of the chest. CLINICAL INDICATION:Male, 77 years old with history of J41.0 bronchitis; FINDINGS: Lungs/Pleura: No pleural effusion or pneumothorax. No focal consolidation. Suggested eventration of t he left hemidiaphragm. Pulmonary vascularity: Unremarkable. Heart/mediastinum: Cardiomediastinal silhouette is unremarkable. Musculoskeletal: Multiple level degenerative disc disease changes seen throughout the spine. No acute osseous abnormality. IMPRESSION: No acute cardiopulmonary disease/process.
== END | disposition home or self-care (01) ==
LOC: RADXRMAIN 10:34
PROVIDERS: ATTEND Family Medicine
DX: J41.0 Simple chronic bronchitis (principal)
CPT/HCPCS: 71046

== ENCOUNTER → 2023-07-13 | Outpatient (CLI) | payer MEDICARE, BC ==
--- NOTE | 2023-07-13 11:13 | XR ---
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 TECHNIQUE: XR chest 2V Frontal and lateral views of the chest. FINDINGS: Lungs/Pleura: There is no evidence of pleural effusion, focal consolidation, or pneumothorax. Pulmonary vascularity: Unremarkable. Heart/mediastinum: Cardiomediastinal silhouette is unremarkable. Musculoskeletal: No acute osseous pathology. Other findings: None IMPRESSION: 1. No acute cardiopulmonary disease process. 2. COPD changes.
== END | disposition home or self-care (01) ==
LOC: RADXRMAIN 10:40
PROVIDERS: ATTEND Family Medicine
DX: J44.9 Chronic obstructive pulmonary disease, unspecified (principal)
CPT/HCPCS: 71046

== ENCOUNTER → 2023-10-27 | Outpatient (CLI) | payer MEDICARE, BC ==
--- NOTE | 2023-10-27 11:16 | MR ---
EXAMINATION TYPE: MR shoulder RT wo con DATE OF EXAM: 10/27/2023 COMPARISON: Outside right shoulder x-ray October 19, 2023 HISTORY: RT SHOULDER PAIN AND UNABLE TO RAISE ARM X2 MONTHS. History of surgery 15 years ago. TECHNIQUE: Multiplanar, multisequence imaging of the right shoulder is performed without contrast. FINDINGS: Rotator Cuff: Intact supraspinatus and infraspinatus tendons with heterogeneous increased signal. Het erogeneity of the subscapularis tendon with surrounding fluid. At least moderate muscular atrophy of the supraspinatus muscle bulk and mild atrophy of the infraspinatus muscle bulk. Moderate to severe a trophy of the subscapularis muscle bulk is felt present. Acromioclavicular Joint: Suspect distal clavicular resection redemonstrated. Distal acromion morpholo gy unremarkable. Glenohumeral Joint: Moderate to severe narrowing with [id number] size joint effusion is presen t. Small bony projection inferiorly medial aspect of the humeral head. Labrum: Heterogeneous increased signal superior labrum consistent with degenerative tear. Biceps Tendon: The long head of biceps is in normal location within bicipital groove. Bone marrow signal: No focal abnormal marrow signal is appreciated. Other: Some mild edema throughout the overlying deltoid muscle is present. IMPRESSION: Evidence of distal clavicular resection. Superior labral tear is seen. Fairly advanced gl enohumeral joint degenerative changes. Tendinosis of the rotator cuff tendons noted.
== END | disposition home or self-care (01) ==
LOC: RADMRIMAIN 07:18
PROVIDERS: ATTEND Orthopaedic Surgery
DX: M19.011 Primary osteoarthritis, right shoulder (principal); M67.813 Other specified disorders of tendon, right shoulder

== ENCOUNTER → 2023-10-27 | Outpatient (CLI) | payer MEDICARE, BC | END | disposition home or self-care (01) | LOC: LABPAT 08:16 | PROVIDERS: ATTEND Orthopaedic Surgery | DX: Z01.812 Encounter for preprocedural laboratory examination (principal); Z22.322 Carrier or suspected carrier of Methicillin resistant Staphylococcus aureus; M19.011 Primary osteoarthritis, right shoulder; M75.121 Complete rotator cuff tear or rupture of right shoulder, not specified as traumatic | CPT/HCPCS: 87070 ==

== ENCOUNTER 2023-12-20 05:41 | Observation (INO) | payer BC, MEDICARE ==
[2023-12-15 13:04] VITALS: BMI 32.8
--- NOTE | 2023-12-19 08:44 | P.HPOR ---
History of Present Illness H&P Date: 12/19/23 Chief Complaint: Right shoulder pain and weakness The patient is a 78-year-old [id number] retired male presents with progressive right shoulder pain and weakness over the past several months. He notes it started after doing heavy lifting underneath a car. He is unable to raise his arm over his head. He is having pain with any attempted activity along with night symptoms. He's had 2 previous open surgeries. He tried medications without much relief. Review of Systems As per HPI Past Medical History Past Medical History: Asthma, GERD/Reflux, Hyperlipidemia, Osteoarthritis (OA), Sleep Apnea/CPAP/BIPAP Additional Past Medical History / Comment(s): Kidney stones, L Rib cage injury. History of Any Multi-Drug Resistant Organisms: None Reported Past Surgical History: Back Surgery, Hernia Repair, Orthopedic Surgery, Tonsillectomy Additional Past Surgical History / Comment(s): Neck JUN 2013 AND BACK APR 2013- laminectomy, left knee arthroscopic followed by left total knee replacement, right shoulder surgery 2. Past Anesthesia/Blood Transfusion Reactions: Postoperative Nausea & Vomiting (PONV) Smoking Status: Never smoker - Past Family History Father Family Medical History: No Reported History Additional Family Medical History / Comment(s): Father with history of rheumatoid arthritis. Mother Family Medical History: No Reported History Additional Family Medical History / Comment(s): Mother at age 91 from a myocardial infarction. She had history of osteoarthritis and a blood disorder. Sister(s) Family Medical History: Cancer Additional Family Medical History / Comment(s): Patient has 2 sisters. One at age 49 from breast cancer and one in their 30s from myocardial infarction with history of Down syndrome. Brother(s) Additional Family Medical History / Comment(s): Patient has 2 brothers with osteoarthritis. Medications and Allergies Home Medications Medication Instructions Recorded Confirmed Type B Complex-Vit C-Vit E-Zinc [Z-Bec] 1 tab PO DAILY 10/13/13 12/15/23 History Colesevelam [Welchol] 3,750 mg PO HS 10/13/13 12/15/23 History Naproxen Sodium [Aleve] 440 mg PO HS PRN 04/16/14 12/15/23 History Omeprazole 20 mg PO BID 04/16/14 12/15/23 History Acetaminophen Tab [Tylenol Tab] 650 mg PO Q6H PRN 03/24/17 12/15/23 History Cetirizine HCl 10 mg PO HS 03/24/17 12/15/23 History Glucosamine/Chondr Ambrosio A Sod [Osteo 2 tab PO DAILY 03/24/17 12/15/23 History Bi-Flex Caplet] Aspirin [Adult Low Dose Aspirin EC] 81 mg PO DAILY 12/15/23 12/15/23 History Fluticasone Propion/Salmeterol 1 inhalation PO DAILY PRN 12/15/23 12/15/23 History [Wixela 100-50 Inhub] Tiotropium 18 Mcg/Puff [Spiriva] 1 puff INHALATION DAILY PRN 12/15/23 12/15/23 History Allergies Allergy/AdvReac Type Severity Reaction Status Date / Time latex Allergy Itching Verified 12/15/23 12:26 Penicillins Allergy Rash/Hives Verified 12/15/23 12:26 TAPE Allergy SKIN Uncoded 12/15/23 12:26 REDDENED AND BLISTERS STATES "PAPER TAPE IS OK" Physical Examination - Shoulder right Appearance: effusion Tenderness with palpation: anterior, bicipital groove Pain: with abduction, with forward flexion ROM: forward flexion: 40 degrees ROM: internal rotation: lower lumbar ROM: external rotation: 0 degrees Crepitus with motion: Yes Strength: abduction: 3/5 Strength: external rotation: 3/5 Tests: internal impingement tests: positive, external impingment tests: positive Results The patient is a well-developed well-nourished male approximately 6 foot tall 242 pounds of endomorphic habits. HEENT exam is nonfocal, neck supple. P assively made over 4 to elevate his right shoulder 210. Impingement test, Neer test, and speed tests are positive. His distal neurovascular appears intact in the right upper extremity. - Diagnostic results Shoulder MRI: image reviewed (MRI of the right shoulder shows evidence of severe glenohumeral joint space narrowing along with a superior labral tear and significant atrophy of the supraspinatus, infraspinatus, and subscapularis.) Assessment and Plan Assessment: Right rotator cuff arthropathysevere Plan: I talked to the patient at length regarding his condition along with treatment options. At this point he is quite symptomatic having both pain and weakness despite previous conservative measures. After a through discussion he opts to proceed with surgery. We will plan to proceed with right reverse total shoulder arthroplasty. Risks and benefits were discussed at length in layman's terms.
[~2023-12-20 05:41] MED LIST changes: -ACETAMINOPHEN TAB 500 MG TAB PO ONE; -HYDROmorphone 0.5 MG/0.5 ML SYRINGE IVP PRN; -LIDOCAINE 1% 20 ML VIAL (10MG/ML) FOR IV START INTRADERMA PRN; -MELOXICAM 7.5 MG TAB PO ONE; -ONDANSETRON 4 MG/2 ML VIAL IVP ONE; +TRANEXAMIC 1,000 MG/100ML-NACL 1,000 MG in SALINE 1 100ML.BAG IVPB PRN; -TRANEXAMIC ACID 1,000 MG in SODIUM CHLORIDE 0.9% 100 ML IVPB ONE; -ceFAZolin IN SWFI 2 GM/20 ML SYRINGE IVP ONE
[2023-12-20] MEDS ORDERED: LIDOCAINE 1% (10MG/ML) FOR IV START INTRADERMA PRN (05:48)
[2023-12-20] MEDS ORDERED: MIDAZOLAM 2 MG/2 ML VIAL IV PRN (05:48)
[2023-12-20] MEDS ORDERED: fentaNYL (PF) 50 MCG/ML 2 ML AMP IVP PRN (05:48)
[2023-12-20] MEDS: IV FLUID CONTINUATION 1,000 ML IV ONE ×2 (06:22→11:09)
[2023-12-20] MEDS: MIDAZOLAM 2 MG/2 ML VIAL IVP ONE (06:50)
[2023-12-20] MEDS: DEXAMETHASONE SOD PHOSPHATE 4 MG/ML 1 ML VIAL IV ONE (07:02)
[2023-12-20] MEDS: MELOXICAM 7.5 MG TAB PO PRN (07:02)
[2023-12-20] MEDS: ACETAMINOPHEN TAB 500 MG TAB PO PRN (07:02)
[2023-12-20] MEDS: LACTATED RINGERS 1,000 ML IV SCH (07:02)
[2023-12-20] MEDS: ONDANSETRON 4 MG/2 ML VIAL IVP ONE (07:03)
[2023-12-20] MEDS: ceFAZolin 1,000 MG in SODIUM CHLORIDE 0.9% 1,000 ML IRRIGATION ONE (08:20)
--- NOTE | 2023-12-20 09:10 | P.ANPRN ---
Procedure Note - Anesthesia - Nerve Block Performed Right Interscalene Single Time Out Performed: Yes Date of Procedure: 12/20/23 Procedure Start Time: 06:49 Procedure Stop Time: 06:54 Location of Patient: PreOp Indication: Acute Post-Operative Pain, Requested by Surgeon Sedation Type: Sedate with meaningful contact maintained Preparation: Sterile Prep, Sterile Dressing Position: Sitting Catheter: None Needle Types: Facet Needle Gauge: 21 Ultrasound used to visualize needle placement: Yes Ultrasound used to observe medication spread: Yes Injectate: 0.5% Ropivacaine (see comment for volume) (30 ml + decadron 4 mg) Blood Aspirated: No Pain Paresthesia on Injection Noted: No Resistance on Injection: Normal Image Stored and Saved: Yes Events: Uneventful and Well Tolerated
[2023-12-20] MEDS ORDERED: hydrOXYzine pamoate 25 MG CAP PO PRN (09:40)
[2023-12-20] MEDS ORDERED: SENNOSIDES-DOCUSATE SODIUM 1 EACH TAB PO PRN (09:40)
[2023-12-20] MEDS ORDERED: HYDROmorphone 0.5 MG/0.5 ML SYRINGE IVP PRN ×2 (09:40)
[2023-12-20] MEDS ORDERED: HYDROcodone/APAP 5-325MG 1 EACH TAB PO PRN (09:40)
--- NOTE | 2023-12-20 09:59 | P.OP ---
Date of Procedure: 12/20/23 Preoperative Diagnosis: Right rotator cuff arthropathy Postoperative Diagnosis: Same Procedure(s) Performed: Right reverse total shoulder arthroplasty Implants: Depuy Delta Xtend size 14 press-fit humeral stem, size 2 epiphysis, 38+12 articular surface, 38 mm standard glenosphere with standard baseplate. Anesthesia: anabell QUEEN Surgeon: Keith Jacobs Mothers Helper #1: Mikael Bryson Estimated Blood Loss (ml): 300 Pathology: none sent Condition: stable Disposition: PACU Indications for Procedure: The patient is a 78-year-old male who presents with progressive right shoulder pain and weakness secondary to rotator cuff arthropathy despite attempted conservative measures. A discussion of the risks and benefits of operative intervention versus continued conservative measures was made with the patient. He opted to proceed with surgery. Operative risks include infection, neurovascular injury, development of blood clots, fracture, instability, possible component loosening/failure and need for subsequent procedures was disc ussed. Informed consent was obtained. Operative Findings: As below Description of Procedure: The patient was brought to the operating room, and after induction of general anesthesia was placed in a beachchair position. The bony prominences were appropriately padded. I examined the right shoulder. There was moderate lack of passive forward elevation and external rotation. The right upper extremity was prepped and draped in normal fashion. The bony outlines the coracoid process, distal clavicle, and acromion were outlined with a skin marker. A pulse centimeter deltopectoral incision was made lateral to the coracoid process. Skin was incised sharply. Subcutaneous tissues were divided bluntly. Electrocautery was used for hemostasis. The cephalic vein was identified and gently retracted laterally with the deltoid. The deltopectoral was bluntly developed. Subdeltoid adhesions were then released. The self-retaining retractor was placed. The conjoined tendon was retracted medially and the deltoid laterally. The biceps was identified. Its sheath was opened. A biceps tenotomy was performed along the remaining tendon did retract distally. The subscapularis was peeled off the lesser tuberosity and tagged. The capsule was released directly off the humeral neck. The head was then exposed. The shoulder was dislocated. A starting hole was made in line with the humeral shaft. The canal was reamed by hand up to size 14. There was good distal chatter. The cutting guide was then placed. I planned on 20 of retroversion. The humeral head cut was then made. The bone was removed in one fragment. Residual inferomedial osteophytes were removed flush with the [place] cortical bone. Attention was then paid towards preparing the glenoid. An anterior and posterior retractors placed. The labrum was released from the 12-6 o'clock position. Remaining biceps was removed as well. A guidepin was placed in the inferior aspect of the glenoid with the guide slightly tilting inferior. The reamer was used down to a bleeding bony surface. The central peg hole was drilled. The standard baseplate was inserted with good purchase. Inferior, superior, and posterior locking screws the appropriate length were placed. Good purchase was obtained. The 38 mm glenosphere was inserted over a guidewire. This was fully seated. Care was taken to avoid any soft tissue interposition. Attention was then paid towards preparing the proximal humerus. The appropriate broach was placed and 20 of retroversion and was fully seated. An eccentric size 2 epiphyseal reamer was utilized. A size 14 stem with a size 2 epiphysis was placed and 20 of retroversion. Trial reduction was obtained with a 38 mm + 12 articular surface. The shoulder was taken through range of motion. He was felt to be stable in flexion and extension with internal and external rotation. I felt there was adequate zoroastrianism of soft tissue tension judging off the conjoined tendon. The shoulder was gently dislocated. The trial components were then removed. The final size 14 press-fit stem along with a size 2 epiphysis was fully seated. There was good rotational stability. The 38 mm + 12 articular surface was impacted. The shoulder again was gently reduced and taken through range of motion. Again it was felt to be stable in all planes. Pulsatile lavage was utilized. The subscapularis was a attached to the lesser tuberosity with #2 Ethibond suture. The deltopectoral interval was closed with interrupted 2-0 Vicryl sutures. The skin was reapproximated with 3-0 subcuticular Prolene suture. Steri-Strips were applied. A sterile dressing was applied. A sling was placed. The patient was awoken from general anesthesia and transferred to recovery room in good condition. Blood loss was estimated at 300 mL. No complications were incurred. Sponge and needle counts were correct at the end the case. Mikael LAWRENCE assisted during the major components of the case to include exposure, glenoid and humeral preparation, implantation, and closure.
--- NOTE | 2023-12-20 10:31 | XR ---
EXAMINATION TYPE: XR shoulder limited RT DATE OF EXAM: 12/20/2023 COMPARISON: None HISTORY: Post right shoulder replacement TECHNIQUE: AP right shoulder FINDINGS: No acute fracture or dislocation is evident. Humeral and glenoid components are present. Po stsurgical soft tissue changes evident. IMPRESSION: 1. No acute fractures post right shoulder replacement
[2023-12-20] MEDS: HYDROmorphone 0.5 MG/0.5 ML SYRINGE IVP PRN (10:32)
[2023-12-20] MEDS: ALBUTEROL NEBULIZED 2.5 MG/3 ML INHALATION STA (10:35)
[2023-12-20 12:44] LABS: Basophils % (A) 0 %; Eosinophils % (A) 0 %; HCT 42.1 % (39.0-53.0); HGB 13.3 gm/dL (13.0-17.5); Lymphocytes # (A) 1.2 k/uL (1.0-4.8); Lymphocytes % (A) 5 %; MCHC 31.5 g/dL (31.0-37.0); MCV 101.5 fL (80.0-100.0); Mean Platelet Volume 8.7; Monocytes # (A) 0.6 k/uL (0-1.0); Monocytes % (A) 3 %; Neutrophils # (A) 21.5 k/uL (1.3-7.7); Neutrophils % (A) 92 %; Platelet Count 300 k/uL (150-450); RBC 4.15 m/uL (4.30-5.90); RDW 12.7 % (11.5-15.5); WBC 23.4 k/uL (3.8-10.6)
[2023-12-20] MEDS: IPRATROPIUM-ALBUTEROL 3 ML NEB INHALATION PRN (16:00)
[2023-12-20] MEDS: HYDROcodone/APAP 5-325MG 1 EACH TAB PO PRN (18:12)
[2023-12-21] MEDS ORDERED: NON FORMULARY DRUG (Tiotropium 18 Mcg/Puff 1 PUFF Each) INHALATION PRN (02:35)
[2023-12-21] MEDS ORDERED: SYMBICORT 80-4.5 MCG INHALER INHALATION PRN (02:35)
--- NOTE | 2023-12-21 02:45 | P.CONS ---
History of Present Illness - Reason for Consult Consult date: 12/20/23 Medical management - Chief Complaint Status post right total arthroplasty - History of Present Illness Patient is a 78-year-old male with a past medical history of asthma, hyperlipidemia, GERD, osteoarthritis, obstructive sleep apnea and history of renal stones and prior history of left total knee replacement. Patient was admitted to hospital for right total shoulder arthroplasty. Currently patient is complaining shoulder pain and requesting pain medications. Also complaining of exertional dyspnea. No cough or sputum production. No chest pain. No nausea vomiting abdominal pain or diarrhea. Patient is s/p right reverse total shoulder arthroplasty. Postoperative day 0 Laboratory data showed WBC 23.4 hemoglobin 13.3 and platelets 300 MCV 101.5 Review of Systems Constitutional: Patient denies any fever or chills . No generalized weakness or weight loss. Abdomen: Patient denied nausea vomiting and diarrhea and abdominal pain. Cardiovascular: Patient denies any chest pain or short of breath no palpitations. Respiratory: patient denied any cough or sputum production. Exertional dyspnea. Neurologic: Patient denied any numbness or tingling. no headache. Musculoskeletal: Patient denies any complaints of joint swelling or deformity. Complaining of right shoulder pain. Skin: Negative Psychiatric: Negative Endocrine: No heat or cold intolerance. No recent weight gain. Genitourinary: No dysuria or hematuria. All other 14 point ROS negative except the above Past Medical History Past Medical History: Asthma, GERD/Reflux, Hyperlipidemia, Osteoarthritis (OA), Sleep Apnea/CPAP/BIPAP Additional Past Medical History / Comment(s): Kidney stones, L Rib cage injury. History of Any Multi-Drug Resistant Organisms: None Reported Past Surgical History: Back Surgery, Hernia Repair, Orthopedic Surgery, Tonsillectomy Additional Past Surgical History / Comment(s): Neck JUN 2013 AND BACK APR 2013- laminectomy, left knee arthroscopic followed by left total knee replacement, right shoulder surgery 2. 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 He was also in the [employer] and served in [place]. 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 He lives at home with his . Past Drug Use History: None Reported - Past Family History Father Family Medical History: No Reported History Additional Family Medical History / Comment(s): Father with history of rheumatoid arthritis. Mother Family Medical History: No Reported History Additional Family Medical History / Comment(s): Mother at age 91 from a myocardial infarction. She had history of osteoarthritis and a blood disorder. Sister(s) Family Medical History: Cancer Additional Family Medical History / Comment(s): Patient has 2 sisters. One at age 49 from breast cancer and one in their 30s from myocardial infarction with history of Down syndrome. Brother(s) Additional Family Medical History / Comment(s): Patient has 2 brothers with osteoarthritis. Medications and Allergies Home Medications Medication Instructions Recorded Confirmed Type B Complex-Vit C-Vit E-Zinc [Z-Bec] 1 tab PO DAILY 10/13/13 12/20/23 History Colesevelam [Welchol] 3,750 mg PO HS 10/13/13 12/20/23 History Naproxen Sodium [Aleve] 440 mg PO HS PRN 04/16/14 12/20/23 History Omeprazole 20 mg PO BID 04/16/14 12/20/23 History Acetaminophen Tab [Tylenol Tab] 650 mg PO Q6H PRN 03/24/17 12/20/23 History Cetirizine HCl 10 mg PO HS 03/24/17 12/20/23 History Glucosamine/Chondr Ambrosio A Sod [Osteo 2 tab PO DAILY 03/24/17 12/20/23 History Bi-Flex Caplet] Aspirin [Adult Low Dose Aspirin EC] 81 mg PO DAILY 12/15/23 12/20/23 History Fluticasone Propion/Salmeterol 1 inhalation PO DAILY PRN 12/15/23 12/20/23 History [Wixela 100-50 Inhub] Tiotropium 18 Mcg/Puff [Spiriva] 1 puff INHALATION DAILY PRN 12/15/23 12/20/23 History Allergies Allergy/AdvReac Type Severity Reaction Status Date / Time latex Allergy Itching Verified 12/20/23 06:14 Penicillins Allergy Rash/Hives Verified 12/20/23 06:14 TAPE Allergy SKIN Uncoded 12/20/23 06:14 REDDENED AND BLISTERS STATES "PAPER TAPE IS OK" Physical Exam Vitals: Vital Signs Temp Pulse Pulse Pulse Pulse Resp BP 12/20/23 21:49 96 12/20/23 21:37 96 12/20/23 16:12 92 12/20/23 16:04 92 12/20/23 14:57 97.6 F 93 18 125/75 12/20/23 13:27 89 117/78 12/20/23 13:12 82 113/75 12/20/23 12:56 80 107/71 12/20/23 12:41 77 114/78 12/20/23 12:26 78 116/73 12/20/23 12:11 75 111/72 12/20/23 11:56 72 113/71 12/20/23 11:41 76 116/70 12/20/23 11:26 97.6 F 81 18 115/70 12/20/23 11:00 74 16 115/58 12/20/23 10:43 74 16 97/54 12/20/23 10:28 80 16 118/57 12/20/23 10:13 88 16 124/57 12/20/23 09:58 97 F L 88 16 120/58 12/20/23 07:19 77 14 125/65 12/20/23 06:58 82 15 136/72 12/20/23 06:18 97.0 F L 80 16 136/76 Pulse Ox 12/20/23 21:49 12/20/23 21:37 12/20/23 16:12 12/20/23 16:04 12/20/23 14:57 93 L 12/20/23 13:27 91 L 12/20/23 13:12 91 L 12/20/23 12:56 90 L 12/20/23 12:41 91 L 12/20/23 12:26 90 L 12/20/23 12:11 90 L 12/20/23 11:56 91 L 12/20/23 11:41 88 L 12/20/23 11:26 90 L 12/20/23 11:00 99 12/20/23 10:43 98 12/20/23 10:28 99 12/20/23 10:13 12/20/23 09:58 100 12/20/23 07:19 95 12/20/23 06:58 95 12/20/23 06:18 94 L Intake and Output 12/20/23 12/20/23 12/20/23 06:59 14:59 22:59 Intake Total 100 951 Output Total 450 Balance 100 501 Intake: IV 100 951 Output: Urine 150 Estimated Blood Loss 300 Other: # Voids 0 Weight 110.2 kg 110.2 kg PHYSICAL EXAMINATION: Patient is lying in the bed comfortably, no acute distress, awake alert and oriented.. HEENT: Normocephalic. Neck is supple. Pupils reactive. Nostrils clear. Oral cavity is moist. Neck reveals no JVD, carotid bruits, or thyromegaly. CHEST EXAMINATION: Trachea is central. Symmetrical expansion. Bibasilar diminished sounds. Mild expiratory wheeze. Nonlabored breathing.. CARDIAC: Normal S1, S2 with no gallops. No murmurs ABDOMEN: Soft. Bowel sounds normal. No organomegaly. No abdominal bruits. Extremities: reveal no edema. No clubbing or cyanosis. Right shoulder surgical site is bandaged. Neurologically awake, alert, oriented x3 with well-coordinated movements. No focal deficits noted Skin: No rash or skin lesions. Psychiatric: Coperative. Nonsuicidal Musculoskeletal: No joint swelling or deformity. Normal range of motion. Results CBC & Chem 7: 12/20/23 12:04 Labs: Abnormal Lab Results - Last 24 Hours (Table) 12/20/23 Range/Units 12:04 WBC 23.4 H (3.8-10.6) k/uL RBC 4.15 L (4.30-5.90) m/uL MCV 101.5 H (80.0-100.0) fL Neutrophils # 21.5 H (1.3-7.7) k/uL Assessment and Plan Assessment: Status post right reverse total arthroplasty postoperative day 0 Leukocytosis likely due to postsurgical inflammation. Rule out infection. Asthma GERD DVT prophylaxis as per primary team Plan: Patient will be continued on pain medications, bowel regimen and encourage incentive spirometry. Patient will be started on DuoNebs and Symbicort and follow-up respiratory status closely. Patient is currently on 2 L oxygen via nasal cannula and titrate down to room air. Follow-up repeat CBC and BMP. Infectious workup of leukocytosis does not trend down. Continue to follow closely and further recommendations based on clinical course. Thank you kindly for your consult. Time with Patient: Greater than 30
[2023-12-21] MEDS ORDERED: ROCURONIUM 10 MG/ML (5 ML VIAL) IV ONE (07:37)
[2023-12-21] MEDS ORDERED: GLYCOPYRROLATE 0.2 MG/ML 2 ML VIAL ONE (07:37)
[2023-12-21] MEDS ORDERED: LIDOCAINE 1% INJ 10MG/ML (20 ML MDV) ONE (07:37)
[2023-12-21] MEDS ORDERED: SUCCINYLCHOLINE CHLORIDE 200 MG/10 ML VIAL IV ONE (07:37)
[2023-12-21] MEDS ORDERED: ROPIVACAINE 5 MG/ML 30 ML VIAL ONE (07:37)
[2023-12-21] MEDS ORDERED: fentaNYL (PF) 50 MCG/ML 2 ML AMP ONE (07:37)
[2023-12-21] MEDS ORDERED: DEXAMETHASONE SOD PHOSPHATE 4 MG/ML 1 ML VIAL ONE (07:37)
[2023-12-21] MEDS ORDERED: NEOSTIGMINE 1 MG/ML 10 ML VIAL ONE (07:37)
[2023-12-21] MEDS ORDERED: PHENYLEPHRINE 10 MG/ML VIAL ONE (07:37)
[2023-12-21] MEDS ORDERED: TRANEXAMIC 1,000 MG/100ML-NACL PREMIX BAG ONE (07:37)
[2023-12-21] MEDS ORDERED: PROPOFOL 10 MG/ML 20 ML VIAL IV ONE (07:37)
[2023-12-21 07:44] VITALS: BP 109/66; RESP 18; TEMP 98.2
[2023-12-21] MEDS: ASPIRIN 325 MG TAB PO SCH (08:33)
[2023-12-21] MEDS: PANTOPRAZOLE 40 MG TABLET PO SCH (08:33)
[2023-12-21 08:40] LABS: HCT 37.5 % (39.6-50.0); MCH 31.1 pg (27.0-32.0); MCV 97.2 FL (80.0-97.0); Mean Platelet Volume 11.3 FL (9.5-12.2); NRBC Per 100 WBC 0 X 10*3/uL (0.00-0.01); Platelet Count 248 X 10*3/uL (140-440); RBC 3.86 X 10*6/uL (4.40-5.60); RDW 13.4 % (11.5-14.5); WBC 15.35 X 10*3/uL (4.50-10.00)
[2023-12-21 09:25] LABS: BUN/Creat Ratio 17.23 Ratio (12.00-20.00); Blood Urea Nitrogen 22.4 mg/dL (9.0-27.0); Calcium 8.2 mg/dL (8.7-10.3); Carbon Dioxide 20.8 mmol/L (21.6-31.8); Chloride 107 mmol/L (96-109); Glucose 123 mg/dL (70-110); Potassium 4.4 mmol/L (3.5-5.5); Sodium 140 mmol/L (135-145)
[2023-12-21 09:28] LABS: Basophils # (A) 0.01 X 10*3/uL (0.00-0.10); Basophils % (A) 0.1 %; Eosinophils # (A) 0 X 10*3/uL (0.04-0.35); Eosinophils % (A) 0 %; Lymphocytes # (A) 1.32 X 10*3/uL (0.90-5.00); Lymphocytes % (A) 8.6 %; Monocytes # (A) 2.09 X 10*3/uL (0.20-1.00); Monocytes % (A) 13.6 %; Neutrophils # (A) 11.85 X 10*3/uL (1.80-7.70); Neutrophils % (A) 77.2 %; RBC Morphology Normal (Normal)
[2023-12-21 09:49] VITALS: PULSE 88
[2023-12-21] MEDS: TAMSULOSIN 0.4 MG CAP.ER.24H PO STA (12:06)
--- NOTE | 2023-12-21 13:41 | P.DS ---
Providers Date of admission: 12/20/2023 Expected date of discharge: 12/21/23 Attending physician: Keith Jacobs Consults: 12/20/23 09:40 Consult Physician Routine Consulting Provider: Jose Rodriguez Consult Reason/Comments: medical management s/p reverse right total shoulder arthroplasty Do you want consulting provider notified?: Yes Primary care physician: Symmes Hospital Course: Date of admission: 12/20/2023 Date of discharge: 12/21/2023 Admission diagnosis: Right rotator cuff arthropathy Discharge diagnosis: Same Attending physician: Dr. Jacobs Surgical procedures: Reverse right total shoulder arthroplasty Brief history: Patient is a 78-year-old male with a history of right rotator cuff arthropathy. At this point patient has failed conservative treatment raul sures and has opted to proceed with a elective reverse right total shoulder arthroplasty. Hospital course: Details of patient's surgery can be found in operative report. Patient tolerated the procedure well and was subsequently transported to orthopedic floor. Patient's orthopeidc and medical care was provided daily. Patient had daily laboratory tests performed for evaluation of overall blood c ounts. Patient had daily physical therapy to include strengthening range of motion as well as education with walker ambulation. Patient was treated with aspirin for their postoperative DVT prophylaxis during their inpatient stay. Patient was noted to have a relatively uneventful postoperative course. Patient reported satisfactory pain control with oral pain medications by postoperative day 1. Patient showed satisfactory progress with physical therapy. Patient moved steadily through the program and had no difficulty meeting the goals by postoperative day 1. Given patient's otherwise satisfactory course and having met physical therapy goals, plan is to discharge patient [home] on postoperative day 1. Discharge condition/disposition: Patient will be discharged [home] in stable condition. Discharge medications: Instructions are given on resumption of patient's normal daily medications per primary care recommendation, in addition patient will be prescribed Gladstone; aspirin; senna. Orthopedic Discharge Instructions: 1. Wound care and infection precautions, keep incision dry and covered while showering, no lotions, creams, moisturizers. No soaking, pools, hot tubs. Do not scrub over incision. 2. Nonweightbearing right upper extremity until follow-up. 3. Ice when necessary. Do not exceed 20 minutes per hour with ice pack. 4. Utilize sling to right upper extremity until seen at first follow up appointment. 5. Pain meds and anticoagulants per prescription. 6. Pain medication has potential to cause constipation. Increase oral fluid and fiber intake. Contact primary care provider if you have not had a bowel movement within 48 hours after discharge. 7. No anti-inflammatory medication until discussed at first post operative visit, this including Motrin, Aleve, Mobic, Diclofenac. 8. Follow up in office at 2 weeks postop with Daljit Chu PA-C / Mikael Bryson PA-C 9. Follow up with your primary care doctor 7-10 days after discharge. 10. Contact [facility] with any questions, . Keep incision clean, dry, intact. While showering, cover Steri-Strips with Saran wrap. Keep Steri-Strips on until follow-up appointment office 2 weeks Assessment: Right rotator cuff arthropathy Procedures: Reverse right total shoulder arthroplasty Patient Condition at Discharge: Good Plan - Discharge Summary Discharge Rx Participant: Yes New Discharge Prescriptions: New Sennosides/Docusate Sodium [Senna Plus 8.6-50 mg Softgel] 1 each PO DAILY #20 capsule Tamsulosin HCl [Flomax] 0.4 mg PO DAILY 30 Days #30 capsule Aspirin 325 mg PO DAILY #28 tab HYDROcodone/APAP 7.5-325MG [Gladstone 7.5-325] 1 tab PO Q6HR PRN #28 tab PRN Reason: Pain Continue B Complex-Vit C-Vit E-Zinc [Z-Bec] 1 tab PO DAILY Colesevelam [Welchol] 3,750 mg PO HS Omeprazole 20 mg PO BID Glucosamine/Chondr Ambrosio A Sod [Osteo Bi-Flex Caplet] 2 tab PO DAILY Acetaminophen Tab [Tylenol] 650 mg PO Q6H PRN PRN Reason: Pain Cetirizine HCl 10 mg PO HS Tiotropium 18 Mcg/Puff [Spiriva] 1 puff INHALATION DAILY PRN PRN Reason: Wheezing Fluticasone Propion/Salmeterol [Wixela 100-50 Inhub] 1 inhalation PO DAILY PRN PRN Reason: Wheezing Discontinued Naproxen Sodium [Aleve] 440 mg PO HS PRN PRN Reason: Pain Aspirin [Adult Low Dose Aspirin EC] 81 mg PO DAILY Discharge Medication List B Complex-Vit C-Vit E-Zinc [Z-Bec] 1 tab PO DAILY 10/13/13 [History] Colesevelam [Welchol] 3,750 mg PO HS 10/13/13 [History] Omeprazole 20 mg PO BID 04/16/14 [History] Acetaminophen Tab [Tylenol] 650 mg PO Q6H PRN 03/24/17 [History] Cetirizine HCl 10 mg PO HS 03/24/17 [History] Glucosamine/Chondr Ambrosio A Sod [Osteo Bi-Flex Caplet] 2 tab PO DAILY 03/24/17 [History] Fluticasone Propion/Salmeterol [Wixela 100-50 Inhub] 1 inhalation PO DAILY PRN 12/15/23 [History] Tiotropium 18 Mcg/Puff [Spiriva] 1 puff INHALATION DAILY PRN 12/15/23 [History] Aspirin 325 mg PO DAILY #28 tab 12/21/23 [Rx] HYDROcodone/APAP 7.5-325MG [Gladstone 7.5-325] 1 tab PO Q6HR PRN #28 tab 12/21/23 [Rx] Sennosides/Docusate Sodium [Senna Plus 8.6-50 mg Softgel] 1 each PO DAILY #20 capsule 12/21/23 [Rx] Tamsulosin HCl [Flomax] 0.4 mg PO DAILY 30 Days #30 capsule 12/21/23 [Rx] Follow up Appointment(s)/Referral(s): Mikael Bryson PAC [PHYSICIAN HOSPICE HOME CARE COORDINATOR] - 01/05/24 9:40 am [place] Baptiste MD [STAFF PHYSICIAN] - 1 Week (urologist for your urinary retension ) Activity/Diet/Wound Care/Special Instructions: Orthopedic Discharge Instructions: 1. Wound care and infection precautions, keep incision dry and covered while showering, no lotions, creams, moisturizers. No soaking, pools, hot tubs. Do not scrub over incision. 2. Nonweightbearing right upper extremity until follow-up. 3. Ice when necessary. Do not exceed 20 minutes per hour with ice pack. 4. Utilize sling to right upper extremity until seen at first follow up appointment. 5. Pain meds and anticoagulants per prescription. 6. Pain medication has potential to cause constipation. Increase oral fluid and fiber intake. Contact primary care provider if you have not had a bowel movement within 48 hours after discharge. 7. No anti-inflammatory medication until discussed at first post operative visit, this including Motrin, Aleve, Mobic, Diclofenac. 8. Follow up in office at 2 weeks postop with Daljit Chu PA-C / Mikael Bryson PA-C 9. Follow up with your primary care doctor 7-10 days after discharge. 10. Contact [facility] with any questions, . Keep incision clean, dry, intact. While showering, cover Steri-Strips with Saran wrap. Keep Steri-Strips on until follow-up appointment office 2 weeks Discharge Disposition: HOME SELF-CARE
--- NOTE | 2023-12-21 13:45 | P.PN ---
Subjective Progress Note Date: 12/21/23 Principal diagnosis: Right rotator cuff arthropathy Patient seen at bedside this morning lying; position with a sling present to right upper extremity and dressing present over right shoulder. Patient says his pain is well-controlled with medication. Patient believes the block wore off earlier this morning. Patient says he has been walking around the room a little bit and has urinated since surgery. Patient mentions she did have to have cath performed last night because he was not able to completely empty his bladder. Patient denies any previous issues with urinary retention. Patient denies chest pain, fever, shortness of breath, nausea, vomiting, change in vision, loss of bowel control. Objective - Vital Signs Vital signs: Vital Signs Temp 98.2 F 12/21/23 07:25 Pulse 88 12/21/23 09:47 Resp 18 12/21/23 07:25 BP 109/66 12/21/23 07:25 Pulse Ox 91 L 12/21/23 07:25 FiO2 Intake & Output 12/20/23 12/21/23 12/21/23 18:59 06:59 18:59 Intake Total 951 Output Total 450 450 Balance 501 -450 Weight 110.2 kg Intake: IV 951 Output: Urine 150 450 Straight 450 Estimated Blood Loss 300 Other: Voiding Method Toilet # Voids 0 1 - Exam Right shoulder: Incision is clean, dry, and intact. The bulky dressing is in good condition. Sling present to right upper extremity. There is minimal soft tissue swelling and ecchymosis surrounding the medial and lateral aspects of the incision. Calf is soft, no tenderness with palpation. Plantar flexion, dorsiflexion, EHL, FHL are intact. Sensory exam to light touch throughout the extremity is intact, dorsal pedis pulses 2+. - Labs CBC & Chem 7: 12/21/23 05:09 12/21/23 05:09 Labs: Abnormal Lab Results - Last 24 Hours (Table) 12/20/23 12/21/23 12/21/23 Range/Units 12:04 05:09 05:09 WBC 23.4 H 15.35 H (3.8-10.6) k/uL RBC 4.15 L 3.86 L (4.30-5.90) m/uL Hgb 12.0 L (13.0-17.0) g/dL Hct 37.5 L (39.6-50.0) % MCV 101.5 H 97.2 H (80.0-100.0) fL Immature Gran # 0.08 H (0.00-0.04) X 10*3/uL Neutrophils # 21.5 H 11.85 H (1.3-7.7) k/uL Monocytes # 2.09 H (0.20-1.00) X 10*3/uL Eosinophils # 0 L (0.04-0.35) X 10*3/uL Carbon Dioxide 20.8 L (21.6-31.8) mmol/L Anion Gap 12.20 H (4.00-12.00) mmol/L Est GFR (CKD-EPI) 57 L (>=60) Glucose 123 H (70-110) mg/dL Calcium 8.2 L (8.7-10.3) mg/dL Assessment and Plan Assessment: 1. Right rotator cuff arthropathy -Postop day 1 status post reverse right total shoulder arthroplasty Plan: 1. Right rotator cuff arthropathy -reverse right total shoulder arthroplasty performed yesterday, 12/20/2023. Sling present to right upper extremity. Bulky dressing in place. Pain medication as needed. Nonweightbearing to the right upper extremity. Going home with Flomax, due to some urinary retention. Discharge home today 2. Appreciate medical management 3. Pain management -[place] Alice 4. DVT prophylaxis -aspirin 5. GI prophylaxis -senna 6. PT/OT -maintain right upper extremity in sling. Nonweightbearing to the right upper extremity. Okay to flex and extend right wrist and right elbow. 7. Encourage incentive spirometer use 8. Discharge planning -home today Time with Patient: Less than 30
--- NOTE | 2023-12-21 22:44 | P.PN ---
Subjective Patient is a 78-year-old male with a past medical history of asthma, hyperlipidemia, GERD, osteoarthritis, obstructive sleep apnea and history of r enal stones and prior history of left total knee replacement. Patient was admitted to hospital for right total shoulder arthroplasty. Currently patient is complaining shoulder pain and requesting pain medications. Also complaining of exertional dyspnea. No cough or sputum production. No chest pain. No nausea vomiting abdominal pain or diarrhea. Patient is s/p right reverse total shoulder arthroplasty. Postoperative day 0 Laboratory data showed WBC 23.4 hemoglobin 13.3 and platelets 300 MCV 101.5 12/21/23 Patient lying in bed looks comfortable His right shoulder is a sling, He states his pain controlled Denies chest pain or dyspnea. No abdominal complaints Patient informed about his white cell count elevation, coming down to 23,000 down to 15,000 with instruction to follow-up with PCP for WBC count and he agrees Creatinine 1.3 No much urinary symptoms Patient instructed to follow-up with urologist Dr. Jean Baptiste upon discharge No other new complaints We will follow-up Objective - Vital Signs Vital signs: Vital Signs Temp 98.2 F 12/21/23 07:25 Pulse 88 12/21/23 09:47 Resp 18 12/21/23 07:25 BP 109/66 12/21/23 07:25 Pulse Ox 91 L 12/21/23 07:25 FiO2 Intake & Output 12/20/23 12/21/23 12/21/23 18:59 06:59 18:59 Intake Total 951 Output Total 450 450 Balance 501 -450 Weight 110.2 kg Intake: IV 951 Output: Urine 150 450 Straight 450 Estimated Blood Loss 300 Other: Voiding Method Toilet # Voids 0 1 - Exam GENERAL: The patient is alert and oriented x3, not in any acute distress. Well developed, well nourished. HEENT: Pupils are round and equally reacting to light. EOMI. No scleral icterus. No conjunctival pallor. Normocephalic, atraumatic. No pharyngeal erythema. No thyromegaly. CARDIOVASCULAR: S1 and S2 present. No murmurs, rubs, or gallops. PULMONARY: Chest is clear to auscultation, no wheezing , no crackles. ABDOMEN: Soft, nontender, nondistended, normoactive bowel sounds. No palpable organomegaly. MUSCULOSKELETAL: No joint swelling or deformity. -EXTREMITIES: No cyanosis, clubbing, or pedal edema. Left shoulder in sling with surgical wound and dressing in place, rest of exam is deferred to surgery team NEUROLOGICAL: Gross neurological examination did not reveal any focal deficits. SKIN: No rashes. no petechiae. - Labs CBC & Chem 7: 12/21/23 05:09 12/21/23 05:09 Labs: Abnormal Lab Results - Last 24 Hours (Table) 12/20/23 12/21/23 12/21/23 Range/Units 12:04 05:09 05:09 WBC 23.4 H 15.35 H (3.8-10.6) k/uL RBC 4.15 L 3.86 L (4.30-5.90) m/uL Hgb 12.0 L (13.0-17.0) g/dL Hct 37.5 L (39.6-50.0) % MCV 101.5 H 97.2 H (80.0-100.0) fL Immature Gran # 0.08 H (0.00-0.04) X 10*3/uL Neutrophils # 21.5 H 11.85 H (1.3-7.7) k/uL Monocytes # 2.09 H (0.20-1.00) X 10*3/uL Eosinophils # 0 L (0.04-0.35) X 10*3/uL Carbon Dioxide 20.8 L (21.6-31.8) mmol/L Anion Gap 12.20 H (4.00-12.00) mmol/L Est GFR (CKD-EPI) 57 L (>=60) Glucose 123 H (70-110) mg/dL Calcium 8.2 L (8.7-10.3) mg/dL Assessment and Plan Assessment: Status post right reverse total arthroplasty postoperative day 0 Leukocytosis likely due to postsurgical inflammation. Rule out infection. Asthma GERD Plan: Continue with pain management Monitor labs including WBC and creatinine and hemoglobin Monitor blood pressure and vitals DVT prophylaxis, defer to primary team GI prophylaxis We recommend patient follow-up with PCP in 1 week after discharge Patient looks medically stable We will follow-up
== END 2023-12-21 14:38 | disposition home or self-care (01) ==
LOC: OR 05:41 → 4SSUR 09:47 → OR 12-21 12:29 → 4SSUR 12-21 12:29
PROVIDERS: ADMIT Orthopaedic Surgery; ATTEND Orthopaedic Surgery
DX: M12.811 Other specific arthropathies, not elsewhere classified, right shoulder (principal); M25.711 Osteophyte, right shoulder; M75.01 Adhesive capsulitis of right shoulder; D72.829 Elevated white blood cell count, unspecified; G89.18 Other acute postprocedural pain; J45.909 Unspecified asthma, uncomplicated; E78.5 Hyperlipidemia, unspecified; K21.9 Gastro-esophageal reflux disease without esophagitis; G47.33 Obstructive sleep apnea (adult) (pediatric); Z96.652 Presence of left artificial knee joint; Z79.899 Other long term (current) drug therapy; Z79.82 Long term (current) use of aspirin; Z79.51 Long term (current) use of inhaled steroids; Z88.0 Allergy status to penicillin; Z91.040 Latex allergy status
CPT/HCPCS: 23472; 96365; 96366; 94640 ×3; 64415; 82747; 80048; 82607; 85025 ×2; 73020; G0378; C1776; J2250; J0330; J1100 ×2; J2710; J0690 ×2; J2405; J2001; J3010; J2795; J2704; J1170; J2371; J1596

== ENCOUNTER → 2023-12-31 | Outpatient (CLI) | payer MEDICARE ==
--- NOTE | 2024-01-01 14:04 | XR ---
EXAMINATION TYPE: XR shoulder limited RT DATE OF EXAM: 12/31/2023 10:49 AM CLINICAL INDICATION:Male, 78 years old with history of [id number] ACQUIRED ABSENCE OF RIGHT SHOULDER; [facility] COMPARISON: 12/20/2023. TECHNIQUE: XR shoulder limited RT; examined in AP, internally rotated and scapular Y projections. FINDINGS: Shoulder arthroplasty with hardware intact. No evidence for fracture. Hardware appears in tact The r emaining portions of the visualized chest are unremarkable. IMPRESSION: Postsurgical changes with hardware intact. No acute osseous pathology.
== END | disposition home or self-care (01) ==
LOC: RADXRWHC 10:14
PROVIDERS: ATTEND Orthopaedic Surgery
DX: Z89.231 Acquired absence of right shoulder (principal)